=== PATIENT | female | born 1990 | race Caucasian/White ===

== ENCOUNTER → 2021-12-07 13:53 | Outpatient (BNVA) | payer MEDICAID, SELFPAY | PROVIDERS: Family Provider Family Medicine; Visit Provider Urology | DX: N30.90 Cystitis, unspecified without hematuria (principal); Z97.5 Presence of (intrauterine) contraceptive device | CPT/HCPCS: 81003; 99213 ==

== ENCOUNTER → 2022-04-25 11:26 | Outpatient (BNVA) | payer MEDICAID, SELFPAY | PROVIDERS: Family Provider Family Medicine; Visit Provider Nurse Practitioner Women's Health | DX: Z30.9 Encounter for contraceptive management, unspecified (principal); Z12.4 Encounter for screening for malignant neoplasm of cervix; Z30.433 Encounter for removal and reinsertion of intrauterine contraceptive device | CPT/HCPCS: 81025; 87624 ==

== ENCOUNTER 2022-11-21 19:42 | Emergency (ER) | payer MEDICAID, SELFPAY ==
[2022-11-21 20:01] VITALS: BP 150/89; PULSE 91; RESP 16; TEMP 37.3; O2SAT 100
[2022-11-21 20:02] LABS: Glucose Point of Care 149 mg/dL (70-110)
--- NOTE | 2022-11-21 20:07 | CTR_ITS ---
PROCEDURE INFORMATION: Exam: CT Head Without Contrast Exam date and time: 11/21/2022 8:11 PM Age: 32 years old Clinical indication: Stroke-like symptoms; Other: Left upper and lower ext heaviness weakness; Additional info: Symptoms of acute stroke TECHNIQUE: Imaging protocol: Computed tomography of the head without contrast. Radiation optimization: All CT scans at this facility use at least one of these dose optimization techniques: automated exposure control; mA and/or kV adjustment per patient size (includes targeted exams where dose is matched to clinical indication); or iterative reconstruction. Other technique: STROKE PROTOCOL was implemented. REPORTING DATA: Count of CT and Cardiac NM exams in prior 12 months: This patient has received 0 known CTs and 0 known cardiac nuclear medicine studies in the 12 months prior to the current study. COMPARISON: No relevant prior studies available. RADIATION DOSE METRICS: Total DLP (mGy-cm): 1108.85 FINDINGS: Tubes, catheters and devices: There is a metallic coiled device in the right occipital scalp, likely related to cochlear implant. Brain: There is hypodensity in the right thalamus most likely chronic lacunar infarct. New paragraphs there is no intracranial mass, hemorrhage or edema. There is no extra-axial fluid collection. Cerebral ventricles: Ventricles are within normal limits. Paranasal sinuses: Visualized sinuses are unremarkable. No fluid levels. Mastoid air cells: Visualized mastoid air cells are well aerated. Bones/joints: Unremarkable. No acute fracture. Soft tissues: Unremarkable. CT/CT head thrombolytic 12850 IMPRESSION: 1. Probable chronic lacunar infarct right thalamus 2. No acute intracranial finding. ASSESSMENT: ASPECTS ([place] Stroke Program Early CT Score) is 10.
--- NOTE | 2022-11-21 20:08 | ED_ITS ---
HPI - Neuro Symptoms/Deficit General: Chief Complaint: Neuro Symptoms/Deficit Stated Complaint: stroke like symptoms Time Seen by Provider: 11/21/22 19:59 History of Present Illness: 32-year-old female with a history of PFO and ASD. These were repaired surgically with inclusion device either in 2013 or 2015. 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 She was on medication for secondary prevention for a couple of years. On follow-up testing, her defects remained closed, and she was told she could stop her medication. This evening around 6 PM, she became nauseated. She vomited. At that point, she began to lean to the left and slumped over. She felt that her residual left-sided weakness, and numbness, was much worse. She noted that her tongue felt large or heavy. Symptoms seem to begin to improve on the way here. On my interview, she notes that her tongue still feels a bit large, and that her upper and lower extremity on the left may still feel a bit heavy and numb or tingly more so than usual. She denies headache. No more nausea. No fever. No other illnesses. Associated symptoms: Deny chest pain, headache(s), nausea or vomiting Review of Systems Const: Denies: fever(s), chills or body aches Eyes: Denies: change in vision Card: Denies: chest pain or palpitations Resp: Denies: dyspnea, productive cough, non-productive cough or wheezing GI: Denies: abdominal pain, nausea, vomiting, diarrhea or hematochezia : Denies: difficulty voiding Skin/Breast: Denies: rash Neuro: Reports: numbness in extremities and weakness in extremities; Denies: headache(s), dizziness, confusion or Slurred speech present [facility] ED PFSH: Medical History (Updated 11/21/22 @ 21:12 by Pieter Pace DO) Common migraine without intractability Congenital hearing loss Dyslipidemia History of repair of congenital anomaly of heart Recurrent cystitis Family History Family/Other Chronic kidney disease (CKD) Hypertension Stroke CAD (coronary artery disease) Colon cancer paternal aunt Diabetes paternal grandmother Denies family history of Ovarian cancer Breast cancer Uterine cancer Social History Smoking and tobacco status: former smoker Alcohol intake: current Alcohol intake frequency: holidays/special occasions only Substance/Drug Use: never Marital status: Current occupational status: unemployed Female Reproductive History: Date of last menstrual period: 11/15/22 NIH stroke score NIHSS: Level Of Consciousness - 1a: 0 Level Of Consciousness Questions - 1b: Both Correct Level Of Consciousness Commands - 1c: Both Correct Best Gaze - 2: Normal Visual Luis - 3: No Visual Loss Facial Palsy - 4: Normal Motor Arm Right - 5: No Drift Motor Arm Left - 5: No Drift Motor Leg Right - 6: No Drift Motor Leg Left - 6: No Drift Limb Ataxia - 7: Absent Sensory - 8: Normal Best Language - 9: No Aphasia Dysarthia - 10: Normal Extinction And Inattention - 11: 0 Score: Total Score: 0 Physical Exam Const: COMMON NORMALS: no acute distress GENERAL APPEARANCE: cooperative; not ill appearing and not frail appearing HENMT: COMMON NORMALS: normocephalic, atraumatic and Normal external nose present HEAD & SCALP: normocephalic and atraumatic FACE & SINUS: normal facial exam and face symmetric NOSE: Normal external nose present Eye: COMMON NORMALS: Equal, round and reactive pupils present and EOMs intact bilaterally PUPIL: Yes Equal, round and reactive pupils present Neck/C-Spine: GENERAL: Yes trachea midline Chest: CHEST: Yes Symmetrical chest wall rise Resp: COMMON NORMALS: normal respiratory effort, No retractions, No use of accessory muscles and clear to auscultation bilaterally AUSCULTATION: clear to auscultation bilaterally Cardio: COMMON NORMALS: regular rate and regular rhythm RATE: regular rate RHYTHM: regular rhythm GI: COMMON NORMALS: Normal to inspection, nondistended, normoactive bowel sounds present Extremity: COMMON NORMALS: no pedal edema Neuro: ROSIBEL COMA SCALE: document GCS findings [place] coma scale eye opening: Spontaneous Rosibel coma scale verbal response: Orientated [place] coma scale motor response: Obey commands Rosibel coma scale total score: 15 CRANIAL NERVES: Yes CN normal except as noted COORDINATION/BALANCE: finger-to -nose test normal and [id number] test normal SPEECH: speech normal GAIT: Yes Normal gait present SENSORY EXAM: Yes extremities (intact) MOTOR EXAM: Normal motor muscle tone present throughout COORDINATION: [id number] test normal and [id number] test normal Psych: COMMON NORMALS: speech normal SPEECH: Yes normal speech Skin: COMMON NORMALS: no rashes or lesions noted GENERAL SKIN EXAM: no rashes or lesions noted Course Vital Signs: Vital signs: Vital Signs Temperature 99.2 F 11/21/22 20:01 Pulse Rate 84 11/21/22 22:06 Respiratory Rate 14 11/21/22 22:06 Blood Pressure 124/83 11/21/22 22:06 Pulse Oximetry 100 11/21/22 22:06 Oxygen Delivery Me thod Room Air 11/21/22 20:01 MDM - Neuro Symptoms/Deficit Medical Decision Making Spoke with neurology about this patient after my evaluation. Her NIH stroke scale is 0. The patient feels improved from the onset of her symptoms. She may have some mild heaviness feeling of her tongue, but her extremity symptoms are improved. There are no language problems, vision problems, etc. CBC is normal. BMP is normal. Head CT shows a chronic lacunar infarct in the right thalamus but no acute findings. Serum work-up is essentially normal. With stroke scale being 0, improvement in the patient's symptoms, thrombolytics were not warranted. Neurology recommendations are aspirin, Plavix, observation admission, and MRI in the morning. The patient declined this. She states that she has kids to take care of at home, and would rather finish her work-up as an outpatient. She will be placed on aspirin and Plavix, MRI ordered as an outpatient, follow-up with neurology. To return for any return of symptoms. Lab Data 11/21/22 20:04 11/21/22 20:[address] 11/21/22 20:07 IMPRESSION: 1. Probable chronic lacunar infarct right thalamus 2. No acute intracranial finding. ASSESSMENT: ASPECTS ([place] Stroke Program Early CT Score) is 10. Laboratory Results WBC 10.26 10^3/uL (3.29-11.43) 11/21/22 20:04 RBC 5.05 10^6/uL (3.85-5.65) 11/21/22 20:04 Hgb 12.80 g/dL (11.27-16.99) 11/21/22 20:04 Hct 39.9 % (36-47) 11/21/22 20:04 MCV 79.0 fl (85-98) L 11/21/22 20:04 MCH 25.3 pg (27-33) L 11/21/22 20:04 MCHC 32.1 g/dL (30-55) 11/21/22 20:04 RDW 14.1 % (12.1-15.1) 11/21/22 20:04 Plt Count 369 10^3/cmm (157-399) 11/21/22 20:04 MPV 10.0 fL (7.4-10.4) 11/21/22 20:04 Neut % (Auto) 80.0 % 11/21/22 20:04 Lymph % (Auto) 13.5 % 11/21/22 20:04 [place] % (Auto) 5.4 % 11/21/22 20:04 Eos % (Auto) 0.5 % 11/21/22 20:04 Baso % (Auto) 0.2 % 11/21/22 20:04 Neut # (Auto) 8.21 10^3/uL (1.8-7.7) H 11/21/22 20:04 Lymph # (Auto) 1.4 10^3/uL (0.8-4.8) 11/21/22 20:04 [place] # (Auto) 0.6 10^3/uL (0.2-0.9) 11/21/22 20:04 Eos # (Auto) 0.1 10^3/uL (0.0-0.8) 11/21/22 20:04 Baso # (Auto) 0.0 10^3/uL (0.0-0.1) 11/21/22 20:04 Nucleated RBC % (auto) 0 % 11/21/22 20: Nucleated RBCs # 0.0 /100WBC 11/21/22 20:04 PT 12.60 SECONDS (12.1-14.9) 11/21/22 20:04 INR 0.92 (0.8-1.2) 11/21/22 20:04 APTT 22.7 SECONDS (23.9-36.7) L 11/21/22 20:04 Sodium 140 mmol/L (136-145) 11/21/22 20:43 Potassium 3.8 mmol/L (3.5-5.1) 11/21/22 20:43 Chloride 103 mmol/L (98-107) 11/21/22 20:43 Carbon Dioxide 26 mmol/L (22-29) 11/21/22 20:43 Anion Gap 14.8 (5-19) 11/21/22 20:43 BUN 12 mg/dL (6-20) 11/21/22 20:43 Creatinine 0.8 mg/dL (0.5-0.9) 11/21/22 20:43 GFR Calculation 82.6 mL/min (90-130) L 11/21/22 20:43 Glucose 127 mg/dL (65-115) H 11/21/22 20:43 POC Glucose 149 mg/dL (70-110) H 11/21/22 19:59 Calculated Osmolality 291 mOsm/kg (285-295) 11/21/22 20:43 Calcium 9.6 mg/dL (8.5-10.5) 11/21/22 20:43 Total Bilirubin 0.2 mg/dL (0.15-1.2) 11/21/22 20:43 AST 26 U/L (0-32) 11/21/22 20:43 ALT 41 U/L (0-33) H 11/21/22 20:43 Alkaline Phosphatase 133 U/L (35-105) H 11/21/22 20:43 Total Protein 7.7 g/dL (6.6-8.7) 11/21/22 20:43 Albumin 4.6 g/dL (3.5-5.2) 11/21/22 20:43 Globulin 3.1 g/dL (1.3-4.6) 11/21/22 20:43 HCG, Qual Negative (Negative) 11/21/22 20:34 Urine Color Straw (Yellow) 11/21/22 20:34 Urine Appearance Clear (CLEAR) 11/21/22 20:34 Urine pH 8 (5-7) H 11/21/22 20:34 Ur Specific [place] 1.010 (1.005-1.030) 11/21/22 20:34 Urine Protein Neg (Negative) 11/21/22 20:34 Urine Glucose (UA) Norm (Normal) 11/21/22 20:34 Urine Ketones Negative (Negative) 11/21/22 20:34 Urine Blood Neg (Negative) 11/21/22 20:34 Urine Nitrate Negative (Negative) 11/21/22 20:34 Urine Bilirubin Neg (Negative) 11/21/22 20:34 Prot Sulfosalicylic Acd Negative (Negative) 11/21/22 20:34 Urine Urobilinogen Norm mg/dL (Negative) 11/21/22 20:34 Ur Leukocyte Esterase Negative (Negative) 11/21/22 20:34 Urine Opiates Screen Negative ng/mL (Negative) 11/21/22 20:34 Ur Barbiturates Screen Negative ng/mL (Negative) 11/21/22 20:34 Ur Phencyclidine Scrn Negative ng/mL (Negative) 11/21/22 20:34 Ur Amphetamines Screen Negative ng/mL (Negative) 11/21/22 20:34 U Benzodiazepines Scrn Negative ng/mL (Negative) 11/21/22 20:34 Urine Cocaine Screen Negative ng/mL (Negative) 11/21/22 20:34 U Marijuana (THC) Screen Negative ng/mL (Negative) 11/21/22 20:34 All radiology interpretation(s) finalized by discharge Discharge Plan Discharge Patient Disposition: Home Clinical Impression: Transient cerebral ischemia Condition: Stable Prescriptions: New Plavix 75 mg tablet 75 mg PO DAILY Qty: 30 0RF Adult Aspirin Regimen 81 mg tablet,delayed release (DR/EC) 81 mg PO DAILY Qty: 30 0RF No Action ParaGard T 380A 380 square mm intrauterine device intrauterine d-aminos supplement PO Patient Comments: OTC supplement apple cider vinegar 500 mg tablet PO Discharge Orders: Discharge ED (Routine); Ordered 11/21/22 Ordered By: Pieter Pace Referrals: Rashida Sigala MD [Physician] - 4-7 days Patient Instructions: Transient Ischemic Attack (ED) Activity Restrictions/Additional Instructions: Medication as directed. You should get a call regarding scheduling your outpatient MRI you will need the card for your cochlear implants available that day. Follow-up with neurology. Let them know you were seen here, and it was recommended you follow-up as an outpatient. Return for any return of symptoms whatsoever. Coding Level of Care Code ED Sdc Teacher for Melly Steiner
[2022-11-21 20:12] LABS: Basophils % 0.2 %; Eosinophils # 0.1 10^3/uL (0.0-0.8); Eosinophils % 0.5 %; Hematocrit 39.9 % (36-47); Lymphocytes # 1.4 10^3/uL (0.8-4.8); Lymphocytes % 13.5 %; Mean Corpuscular HGB Conc 32.1 g/dL (30-55); Mean Corpuscular Hemoglobin 25.3 pg (27-33); Monocytes # 0.6 10^3/uL (0.2-0.9); Monocytes % 5.4 %; Neutrophils # 8.21 10^3/uL (1.8-7.7); Nucleated Red Blood Cells % 0 %; Platelet Count 369 10^3/cmm (157-399); Red Blood Count 5.05 10^6/uL (3.85-5.65); Red Cell Distribution Width 14.1 % (12.1-15.1); White Blood Count 10.26 10^3/uL (3.29-11.43)
--- NOTE | 2022-11-21 20:16 | ECG_ITS ---
[facility] Test Date: 2022-11-21 Pat Name: Geraldine Coombs Department: Room: Gender: Female Road Maker: : 1990 Requested By: Pieter Collier Order Number: [id number] Von MD: Antwan Maddox M.D. Measurements Intervals [place] Rate: 84 P: 59 MD: 140 QRS: 73 QRSD: 113 T: 45 QT: 341 QTc: 404 Interpretive Statements SINUS RHYTHM INCOMPLETE RIGHT BUNDLE BRANCH BLOCK [90+ ms QRS DURATION, TERMINAL R IN V1/V2, 40+ ms S IN I/aVL/V4/V5/V6] MODERATE ST DEPRESSION [0.05+ mV ST DEPRESSION] Compared to ECG 04/27/2016 02:32:25 No significant changes Electronically Signed On 11-22-2022 21:08:55 CDT by Antwan Maddox M.D. [id number]
[2022-11-21 20:28] LABS: INR 0.92 (0.8-1.2)
[2022-11-21 20:29] LABS: Partial Thromboplastin Time 22.7 SECONDS (23.9-36.7)
[2022-11-21 20:47] LABS: Add Urine Microscopic? NO; Charge for UA Resulting for Rev
[2022-11-21 20:50] LABS: Bilirubin Urine Neg (Negative); Blood Urine Neg (Negative); Glucose Urine UA Norm (Normal); Ketones Urine Negative (Negative); Leukocyte Esterase Urine Negative (Negative); Nitrate Urine Negative (Negative); Protein Urine Neg (Negative); Sulfosalicylic Acid Urine Negative (Negative); Urine Appearance Clear (CLEAR); Urine Color Straw (Yellow); Urobilinogen Urine Norm (Negative); pH Urine 8 (5-7)
[2022-11-21 20:57] LABS: Amphetamines Screen Urine Negative (Negative); Barbiturates Screen Urine Negative (Negative); Benzodiazepines Screen Urine Negative (Negative); Cocaine Screen Urine Negative (Negative); Opiate Screen Urine Negative (Negative); PCP Screen Urine Negative (Negative); THC Screen Urine Negative (Negative)
[2022-11-21 21:08] LABS: HCG Qualitative Urine. Negative (Negative)
[2022-11-21 21:12] LABS: Alanine Aminotransferase 41 U/L (0-33); Albumin Level 4.6 g/dL (3.5-5.2); Alkaline Phosphatase 133 U/L (35-105); Anion Gap 14.8 (5-19); Aspartate Amino Transferase 26 U/L (0-32); Blood Urea Nitrogen 12 mg/dL (6-20); Calcium 9.6 mg/dL (8.5-10.5); Carbon Dioxide 26 mmol/L (22-29); Chloride 103 mmol/L (98-107); Globulin 3.1 g/dL (1.3-4.6); Glomerular Filtration Rate 82.6 mL/min (90-130); Glucose 127 mg/dL (65-115); Osmolality Calculated 291 mOsm/kg (285-295); Potassium 3.8 mmol/L (3.5-5.1); Sodium 140 mmol/L (136-145); Total Bilirubin 0.2 mg/dL (0.15-1.2); Total Protein 7.7 g/dL (6.6-8.7)
[2022-11-21] MEDS: aspirin 325 mg Tablet 81 MG PO (21:38)
[2022-11-21] MEDS: clopidogrel 75 mg Tablet PO (21:38)
[2022-11-21 22:06] VITALS: BP 124/83; PULSE 84; RESP 14; O2SAT 100
== END 2022-11-21 21:45 | disposition home or self-care (01) ==
PROVIDERS: Emergency Provider Emergency Medicine
DX: G45.9 Transient cerebral ischemic attack, unspecified (principal); Z87.891 Personal history of nicotine dependence; E78.5 Hyperlipidemia, unspecified
CPT/HCPCS: 36415; 36416; 70450; 80053; 80306; 81003; 81025; 82962; 85025; 85610; 85730; 93005; 99285

== ENCOUNTER → 2023-08-02 11:53 | Outpatient (BNVA) | payer OTHER, SELFPAY | PROVIDERS: Visit Provider Nurse Practitioner Women's Health | DX: N30.90 Cystitis, unspecified without hematuria (principal) | CPT/HCPCS: 84439; 84443; 84481 ==

== ENCOUNTER 2024-08-02 15:38 | Emergency (ER) | payer OTHER, SELFPAY ==
[2024-08-02 15:41] VITALS: BP 128/90; PULSE 92; RESP 16; TEMP 36.8; O2SAT 100; BMI 25.0
--- NOTE | 2024-08-02 15:44 | ECG_ITS ---
[facility] Test Date: 2024-08-02 Pat Name: Geraldine Kaminski Department: Room: Gender: Female Bilingual Kindergarten Teacher: : 1990 Requested By: Christiane Houston Order Number: [id number] Reading MD: HERMINIA DELAROSA Measurements Intervals [place] Rate: 96 P: 82 AK: 142 QRS: 91 QRSD: 109 T: 69 QT: 360 QTc: 456 Interpretive Statements SINUS RHYTHM POSSIBLE LEFT ATRIAL ENLARGEMENT [-0.1mV P-WAVE IN V1/V2] BORDERLINE RIGHT AXIS DEVIATION [QRS AXIS > 90] MODERATE T-WAVE ABNORMALITY, CONSIDER ANTERIOR ISCHEMIA [-0.1+ mV T-WAVE IN V3/V4] No previous ECG available for comparison Electronically Signed On 08-03-2024 23:52:29 CDT by HERMINIA DELAROSA [id number]
--- NOTE | 2024-08-02 15:44 | XRR_ITS ---
PROCEDURE INFORMATION: Exam: XR Chest Exam date and time: 08/02/2024 4:20 PM Age: 33 years old Clinical indication: Pain; Chest pressure; Additional info: Chest pain TECHNIQUE: Imaging protocol: Radiologic exam of the chest. Views: 1 view. COMPARISON: No relevant prior studies available. FINDINGS: Lungs: No focal consolidation. Pleural spaces: No evidence of pneumothorax. No evidence of pleural effusion. Heart/Mediastinum: Cardiomediastinal silhouette is within normal limits. Bones/joints: No evidence of acute osseous abnormality. XR/XR chest 1V portable [id number] IMPRESSION: 1. No acute cardiopulmonary abnormality.
[2024-08-02 17:03] LABS: Basophils % 0.3 %; Eosinophils % 0.4 %; Hematocrit 36.8 % (36-47); Lymphocytes # 1.8 10^3/uL (0.8-4.8); Lymphocytes % 17.9 %; Mean Corpuscular HGB Conc 30.4 g/dL (30-55); Mean Corpuscular Hemoglobin 23.8 pg (27-33); Mean Corpuscular Volume 78.3 fl (85-98); Mean Platelet Volume 9.3 fL (7.4-10.4); Monocytes # 0.5 10^3/uL (0.2-0.9); Monocytes % 5.2 %; Neutrophils % 75.9 %; Nucleated Red Blood Cells % 0 %; Platelet Count 358 10^3/cmm (157-399); White Blood Count 9.88 10^3/uL (3.29-11.43)
[2024-08-02 17:16] LABS: HCG, Serum Qual Negative (Negative)
[2024-08-02 17:22] LABS: Troponin(5th) Baseline < 6 ng/L (0-10)
[2024-08-02 17:24] LABS: Alanine Aminotransferase 26 U/L (0-33); Albumin Level 4.3 g/dL (3.5-5.2); Alkaline Phosphatase 113 U/L (35-105); Anion Gap 16.4 (5-19); Aspartate Amino Transferase 22 U/L (0-32); Blood Urea Nitrogen 8 mg/dL (6-20); Calcium 9.4 mg/dL (8.5-10.5); Carbon Dioxide 24 mmol/L (22-29); Chloride 104 mmol/L (98-107); Creatinine Clr Calc Pharmacy 132.8616; Glomerular Filtration Rate 114.4 mL/min (90-130); Glucose 90 mg/dL (65-115); Osmolality Calculated 288 mOsm/kg (285-295); Potassium 4.4 mmol/L (3.5-5.1); Sodium 140 mmol/L (136-145); Total Bilirubin 0.3 mg/dL (0.15-1.2); Total Protein 7.3 g/dL (6.6-8.7)
--- NOTE | 2024-08-02 17:32 | W.ED.CHESTPA ---
HPI - Chest Pain General: Chief Complaint: Chest Pain Stated Complaint: Chest pain Time Seen by Provider: 08/02/24 17:30 History of Present Illness: Patient is a pleasant 33-year-old female with history of congenital heart anomaly on Plavix, and aspirin that presented to the emergency room due to a funny feeling in her chest, head, left shoulder, and cramping in her left posterior proximal leg. This started 2 days ago. She felt funny when she drove her daughter to [place], and stated she may not have been safe with her funny feeling. Denies any syncope. No palpitations. No shortness of breath or nausea. She did start vaping, and had a cough, with a white sputum production. She thought this could be the issue. This has lingered and waxed and waned since that time, Associated symptoms: Deny abdominal pain, dyspnea, fever(s), nausea, palpitations or vomiting Related Data Home Medications ?Medication ?Instructions ?Recorded ?Confirmed copper 380 square mm intrauterine intrauterine 04/14/22 08/02/23 device ([employer] T 380A) d-aminos supplement PO 04/14/22 08/02/23 apple cider vinegar 500 mg tablet mg PO 06/21/22 08/02/23 Previous Rx's ?Medication ?Instructions ?Recorded aspirin 81 mg tablet,delayed 81 mg PO DAILY #30 tabs 11/21/22 release (Adult Aspirin Regimen) clopidogrel 75 mg tablet (Plavix) 75 mg PO DAILY #30 tabs 11/21/22 Allergies Allergy/AdvReac Type Severity Reaction Status Date / Time No Known Allergies Allergy Verified 08/02/23 11:22 Review of Systems General: Reports: 10 or more systems reviewed and unremarkable except in HPI and below Const: Denies: fever(s) or chills Eyes: Denies: change in vision ENMT: Denies: throat pain or odynophagia Card: Reports: chest pain; Denies: palpitations Resp: Denies: dyspnea or productive cough GI: Denies: abdominal pain, nausea or vomiting : Denies: flank pain or difficulty voiding Musc: Denies: neck pain, back pain or joint pain Skin/Breast: Denies: rash or pruritus Neuro: Reports: headache(s); Denies: numbness in extremities or weakness in extremities Psych: Denies: anxiety or depression PFSH ED PFSH: Medical History (Updated 08/02/24 @ 19:25 by SHIRA Nguyen) Recurrent cystitis Congenital hearing loss Dyslipidemia Common migraine without intractability History of repair of congenital anomaly of heart Family History Family/Other Chronic kidney disease (CKD) Hypertension Stroke CAD (coronary artery disease) Colon cancer paternal aunt Diabetes paternal grandmother Denies family history of Ovarian cancer Breast cancer Uterine cancer Social History Smoking and tobacco/nicotine status: former use of tobacco/nicotine Alcohol intake: current Alcohol intake frequency: holidays/special occasions only Substance/Drug Use: never Marital status: Current occupational status: unemployed Physical Exam Const: COMMON NORMALS: no acute distress, average body habitus, patient oriented x3 and no limitations EXAM LIMITATIONS: no altered mental status GENERAL APPEARANCE: cooperative, comfortable and well kempt ORIENTATION/CONSCIOUSNESS: Yes awake, Yes oriented to person, Yes oriented to place and Yes oriented to time HENMT: COMMON NORMALS: normocephalic and atraumatic HEAD & SCALP: normocephalic and atraumatic Eye: COMMON NORMALS: Equal, round and reactive pupils present, EOMs intact bilaterally and conjunctivae normal VISUAL ACUITY: Yes acuity normal CONJUNCTIVA: Yes conjunctivae normal SCLERA: sclerae normal PUPIL: Yes Equal, round and reactive pupils present Neck/C-Spine: COMMON NORMALS: full ROM, no lymphadenopathy and Thyroid normal THYROID: Thyroid normal Resp: COMMON NORMALS: normal respiratory effort and clear to auscultation bilaterally AUSCULTATION: clear to auscultation bilaterally Cardio: COMMON NORMALS: S1 normal heart sound present and S2 normal heart sound present HEART SOUNDS: S1 normal heart sound present and S2 normal heart sound present GI: COMMON NORMALS: Normal to inspection, nondistended, normoactive bowel sounds present and Soft to palpation PALPATION: Yes Soft to palpation : COMMON NORMALS: Yes no CVA tenderness BLADDER/KIDNEY EXAM: Yes no CVA tenderness Back/Pelvis: COMMON NORMALS: no CVA tenderness Neuro: COMMON NORMALS: patient oriented x3 SENSORIUM/ORIENTATION: Yes oriented to person, Yes oriented to place and Yes oriented to time SPEECH: speech normal Psych: COMMON NORMALS: Normal thought process present and cooperative APPEARANCE: Yes well kempt ATTITUDE: Yes calm THOUGHT PROCESS: Normal thought process present Skin: COMMON NORMALS: no rashes or lesions noted GENERAL SKIN EXAM: no rashes or lesions noted Course Reevaluation(s): Reevaluation #1: Does not appear to have a change after GI cocktail. Vital Signs: Vital signs: Vital Signs Temperature 98.2 F 08/02/24 15:41 Pulse Rate 83 08/02/24 18:14 Respiratory Rate 15 08/02/24 18:14 Blood Pressure 130/67 08/02/24 18:14 Pulse Oximetry 100 08/02/24 18:14 Oxygen Delivery Me thod Room Air 08/02/24 18:14 MDM - Chest Pain Medical Decision Making Patient is 33-year-old female with odd symptoms of chest discomfort, radiating to her throat, left shoulder, and association of cramping in her left posterior proximal leg. She has a history of congenital heart anomaly for which she is compliant to Plavix. She has already taken her aspirin today. Initial troponin is negative, EKG is without ST segment elevation, and D-dimer is negative. Suspect costochondritis. Any additional concerns can be ruled out by primary care if second troponin is negative as well as discussed with patient. Patient is acceptable to this as well. Lab Data 08/02/24 16:50 08/02/24 16:50 Radiology Impressions Chest X-Ray 08/02/24 15:44 IMPRESSION: 1. No acute cardiopulmonary abnormality. Laboratory Results WBC 9.88 10^3/uL (3.29-11.43) 08/02/24 16:50 RBC 4.70 10^6/uL (3.85-5.65) 08/02/24 16:50 Hgb 11.20 g/dL (11.27-16.99) L 08/02/24 16:50 Hct 36.8 % (36-47) 08/02/24 16:50 MCV 78.3 fl (85-98) L 08/02/24 16:50 MCH 23.8 pg (27-33) L 08/02/24 16:50 MCHC 30.4 g/dL (30-55) 08/02/24 16:50 RDW 15.0 % (12.1-15.1) 08/02/24 16:50 Plt Count 358 10^3/cmm (157-399) 08/02/24 16:50 MPV 9.3 fL (7.4-10.4) 08/02/24 16:50 Neut % (Auto) 75.9 % 08/02/24 16:50 Lymph % (Auto) 17.9 % 08/02/24 16:50 [place] % (Auto) 5.2 % 08/02/24 16:50 Eos % (Auto) 0.4 % 08/02/24 16:50 Baso % (Auto) 0.3 % 08/02/24 16:50 Neut # (Auto) 7.50 10^3/uL (1.8-7.7) 08/02/24 16:50 Lymph # (Auto) 1.8 10^3/uL (0.8-4.8) 08/02/24 16:50 [place] # (Auto) 0.5 10^3/uL (0.2-0.9) 08/02/24 16:50 Eos # (Auto) 0.0 10^3/uL (0.0-0.8) 08/02/24 16:50 Baso # (Auto) 0.0 10^3/uL (0.0-0.1) 08/02/24 16:50 Nucleated RBC % (auto) 0 % 08/02/24 16:50 Nucleated RBCs # 0.0 /100WBC 08/02/24 16:50 D-Dimer 0.38 ug/mLFEU (0-0.59) 08/02/24 16:50 Sodium 140 mmol/L (136-145) 08/02/24 16:50 Potassium 4.4 mmol/L (3.5-5.1) 08/02/24 16:50 Chloride 104 mmol/L (98-107) 08/02/24 16:50 Carbon Dioxide 24 mmol/L (22-29) 08/02/24 16:50 Anion Gap 16.4 (5-19) 08/02/24 16:50 BUN 8 mg/dL (6-20) 08/02/24 16:50 Creatinine 0.6 mg/dL (0.5-0.9) 08/02/24 16:50 GFR Calculation 114.4 mL/min (90-130) 08/02/24 16:50 Glucose 90 mg/dL (65-115) 08/02/24 16:50 Calculated Osmolality 288 mOsm/kg (285-295) 08/02/24 16:50 Calcium 9.4 mg/dL (8.5-10.5) 08/02/24 16:50 Total Bilirubin 0.3 mg/dL (0.15-1.2) 08/02/24 16:50 AST 22 U/L (0-32) 08/02/24 16:50 ALT 26 U/L (0-33) 08/02/24 16:50 Alkaline Phosphatase 113 U/L (35-105) H 08/02/24 16:50 Creatine Kinase 104 U/L (26-192) 08/02/24 16:50 Troponin T Baseline < 6 ng/L (0-10) 08/02/24 16:50 Troponin T 120 Minute < 6.0 ng/L (0-10) 08/02/24 18:41 Delta Troponin T 0 ABS# (0-10) 08/02/24 18:41 Total Protein 7.3 g/dL (6.6-8.7) 08/02/24 16:50 Albumin 4.3 g/dL (3.5-5.2) 08/02/24 16:50 Globulin 3.0 g/dL (1.3-4.6) 08/02/24 16:50 HCG, Qual Negative (Negative) 08/02/24 16:50 All radiology interpretation(s) finalized by discharge ED provider radiology interpretation(s): no acute Discharge Plan Discharge Patient Disposition: Home Clinical Impression: Chest pain, non-cardiac Condition: Stable Prescriptions: No Action ParaGard T 380A 380 square mm intrauterine device intrauterine d-aminos supplement PO Patient Comments: OTC supplement apple cider vinegar 500 mg tablet PO Plavix 75 mg tablet 75 mg PO DAILY Qty: 30 0RF Adult Aspirin Regimen 81 mg tablet,delayed release (DR/EC) 81 mg PO DAILY Qty: 30 0RF Discharge Orders: Discharge ED (Routine); Ordered 08/02/24 Ordered By: Jenny Grey Discharge Diet: Usual diet Discharge Activity: Resume usual activity Patient Instructions: Chest Pain - Noncardiac Activity Restrictions/Additional Instructions: Continue your aspirin and Plavix daily Follow-up with your primary care physician for further recommendations Feel free to return to ED for further symptoms. No acute findings were noted today in regards to your heart. Stand Alone Forms: Work/School Release Print Language: Turkmen Coding Level of Care Code ED Inpatient Services Rn for Melly Steiner
[2024-08-02] MEDS: lidocaine 2% viscous 15 ML, aluminum-mag hydrox-simethicon 30 ML, sucralfate oral liq 1 GM PO (17:47)
[2024-08-02 17:48] VITALS: BP 125/75; PULSE 84; RESP 13; O2SAT 100
[2024-08-02 18:05] LABS: D Dimer 0.38 ug/mLFEU (0-0.59)
[2024-08-02 18:07] LABS: Creatine Phosphokinase 104 U/L (26-192)
[2024-08-02 18:14] VITALS: BP 130/67; PULSE 83; RESP 15; O2SAT 100
[2024-08-02 19:19] LABS: Troponin 5 2HR < 6.0 ng/L (0-10); Troponin 5 2HR Delta 0 ABS# (0-10)
[2024-08-02 19:44] VITALS: BP 109/72; PULSE 82; RESP 16; O2SAT 98
== END 2024-08-02 19:48 | disposition home or self-care (01) ==
PROVIDERS: Physician Assistant; Emergency Provider Physician Assistant
DX: R07.89 Other chest pain (principal); Z87.891 Personal history of nicotine dependence; E78.5 Hyperlipidemia, unspecified
CPT/HCPCS: 36415; 71045; 80053; 82550; 84484; 84703; 85025; 85378; 93005; 99285; J9999

== ENCOUNTER 2024-12-09 09:20 | Outpatient (CLI) | payer OTHER, SELFPAY ==
--- NOTE | 2024-12-09 09:15 | USCV_ITS ---
Geraldine Kaminski Age: 34 Gender: F : 1990 Exam Date: 12/09/2024 09:53 Ordering Phys: Vivian Coronado MD ([email or web address]) Technologist: [email or web address] [place] [facility] [place]: h/o ASD, s/p PFO closure device BP: 124 / 76 HR: 69 Rhythm: Sinus Technical Quality: Adequate MEASUREMENTS (Male / Female) Normal Values 2D ECHO LV Diastolic Diameter PLAX 4.3 cm 4.2 - 5.9 / 3.9 - 5.3 cm IVS Diastolic Thickness 0.8 cm 0.6 - 1.0 / 0.6 - 0.9 cm IVS Systolic Thickness 1.4 cm LVPW Diastolic Thickness 1.2 cm 0.6 - 1.0 / 0.6 - 0.9 cm LVPW Systolic Thickness 1.4 cm LVOT Diameter 2.0 cm LV Ejection Fraction 2D Teich 60.4 % LV Ejection Fraction MOD 4C 53.2 % LV Ejection Fraction MOD 2C 71.9 % LV Ejection Fraction 2C AL 74.5 % LA Diameter 2.9 cm RA Systolic Volume 4C AL 17.8 ml RA Systolic Volume 4C MOD 17.6 ml LA Sys Volume AL 38.8 cm cubed LA Sys Volume Index AL 20.6 cm cubed/m squared Aorta at Sinotubular Diameter 2.3 cm IVC Diameter 1.1 cm M-MODE LA Ao Ratio MM 1.1 AV Cusp Separation MM 1.4 cm DOPPLER AV Peak Velocity 111.0 cm/s LVOT Peak Velocity 96.0 cm/s AV Area Cont Eq vti 2.8 cm squared AV Area Cont Eq pk 2.7 cm squared MV Peak Velocity 104.0 cm/s MV Area PHT 5.4 cm squared Mitral E to A Ratio 1.6 TR Peak Velocity 95.0 cm/s TR Peak Gradient 3.6 mmHg TV Peak E Velocity 85.0 cm/s PV Peak Velocity 95.0 cm/s FINDINGS Left Ventricle Normal left ventricular size, systolic function and wall thickness, with no regional wall motion abnormalities. Left ventricular ejection fraction is estimated at 60 %. Normal diastolic function. Right Ventricle Normal right ventricular size and systolic function. Right Atrium Normal right atrial size. Left Atrium Normal left atrial size. IA Septum Appear to be PFO/ASD occluder device visualized sitting in a normal position, there is no obvious interatrial shunt noted through color Doppler however cannot rule out with confidence since it is not well-visualized, if needed ROBERT or bubble study may need to be ordered Mitral Valve Normal mitral valve structure. No mitral valve stenosis or regurgitation. Aortic Valve Normal aortic valve structure. No aortic valve stenosis or regurgitation. Tricuspid Valve Normal tricuspid valve structure. No tricuspid valve stenosis or regurgitation. Normal pulmonary pressure. Pulmonic Valve Normal pulmonic valve structure. No pulmonic valve stenosis or regurgitation. Pericardium No pericardial effusion. Aorta Normal diameter of the aortic root and ascending thoracic aorta. IVC Normal IVC diameter. CONCLUSIONS Normal left ventricular size, systolic function and wall thickness, with no regional wall motion abnormalities. Left ventricular ejection fraction is estimated at 60 %. Normal diastolic function. Appear to be PFO/ASD occluder device visualized sitting in a normal position, there is no obvious interatrial shunt noted through color Doppler however cannot rule out with confidence since it is not well-visualized, if needed ROBERT or bubble study may need to be ordered There is no pericardial effusion. Right atrial pressure is around 5 mm of mercury. Vivian Coronado MD (Electronically Signed) Final Date: 19 December 2024 20:47 S
== END 2024-12-09 09:21 | disposition home or self-care (01) ==
LOC: RAD 09:24
PROVIDERS: PCP Nurse Practitioner Family; Visit Provider Internal Medicine Cardiovascular Disease
DX: Z87.74 Personal history of (corrected) congenital malformations of heart and circulatory system (principal); Q21.10 Atrial septal defect, unspecified; Z96.89 Presence of other specified functional implants
CPT/HCPCS: C8929